=== PATIENT | male | born 1935 | race Caucasian/White ===

== ENCOUNTER 2018-01-29 14:14 | Emergency (ER) | payer MEDICARE, MEDICAID ==
[~2018-01-29] VITALS: Ht 170.2 cm; Wt 86.6 kg
--- NOTE | 2018-01-29 14:20 | NUR ---
BIBPA FROM SNF C/O RT ARMPIT ABSCESS. RR IS EVEN AND UNLABORED WITH NAD NOTED. SKIN IS WARM AND DRY. AWAITING MD FOR EVAL.
[2018-01-29] MEDS ORDERED: LIDOCAINE 1%-EPI 1:100,000 20 ML VIAL TP ONE (15:30)
[2018-01-29] MEDS ORDERED: LIDOCAINE 1%-EPI 1:100,000 20 ML VIAL ONE (15:30)
--- NOTE | 2018-01-29 17:11 | NUR ---
CALLED MARLENE FULTON [facility] TO ARRANGE A S TRANSPORT TO [facility]. WAS GIVEN AN ETA OF 1830 TRIP#: [id number]
--- NOTE | 2018-01-29 19:39 | NUR ---
REPORT GIVEN TO MERCEDES KELLY FOR [facility].
--- NOTE | 2018-01-29 20:22 | NUR ---
REPORT GIVEN TO EMT FOR TRANSPORT
[2018-01-29 20:40] VITALS: BP 110/65
== END 2018-01-29 20:22 | disposition home or self-care (01) ==
LOC: ER 14:17
DX: L02.411 Cutaneous abscess of right axilla (principal); J45.909 Unspecified asthma, uncomplicated; I10 Essential (primary) hypertension; E11.9 Type 2 diabetes mellitus without complications; Z60.2 Problems related to living alone
CPT/HCPCS: A4606; A6253; A6402; A6407; J3490; Z7610